=== PATIENT | male | born 1995 | race Hispanic/Latino ===

== ENCOUNTER 2018-08-07 04:28 | Emergency (ER) | payer OTHER ==
[2018-08-07] MEDS ORDERED: IBUPROFEN 600 MG TABLET ONE (04:52)
[2018-08-07] MEDS ORDERED: ACETAMINOPHEN EXTRA STRENGTH 500 MG TABLET ONE (04:52)
== END 2018-08-07 05:41 ==
LOC: EDH 04:28
DX: B34.9 Viral infection, unspecified (principal)
CPT/HCPCS: 87804